=== PATIENT | male | born 1985 | race American Indian/Alaskan Native ===

== ENCOUNTER 2019-06-21 13:06 | Emergency (ER) | payer SELFPAY ==
[2019-06-21 13:14] VITALS: BP 118/75
[2019-06-21 13:52] LABS: Hematocrit 46.7 % (35.5-45.6); Mean Corpuscular HGB Conc 32 % (32-34); Mean Corpuscular Volume 75 fl (84-94); Platelet Count 208 K/mm3 (140-440); Red Blood Count 6.25 M/mm3 (3.65-5.03); Red Cell Distribution Width 16.2 % (13.2-15.2)
[2019-06-21 14:06] LABS: Alanine Aminotransferase 11 units/L (7-56); BUN/Creatinine Ratio 6; Blood Urea Nitrogen 4 mg/dL (9-20); Calcium 9.6 mg/dL (8.4-10.2); Hemolysis Index 8
== END 2019-06-21 15:15 ==
LOC: ED 13:06
DX: R20.0 Anesthesia of skin (principal); Z53.21 Procedure and treatment not carried out due to patient leaving prior to being seen by health care provider
CPT/HCPCS: 36415; 80053; 82962; 85027